=== PATIENT | female | born 1945 | race African-American/Black ===

== ENCOUNTER 2017-03-15 07:23 | Day surgery (SDC) | payer MEDICARE, BC ==
[~2017-03-15] VITALS: Ht 165.1 cm; Wt 104.3 kg
[~2017-03-15 07:23] MED LIST: FLUT1DIS3 IH; HYDR-4133 PO; METF500T4 PO; OLME1TAB30 PO
[2017-03-15 08:37] LABS: BASOPHILS % 1.1 % (0.0-2.0); EOSINOPHILS % 2.5 % (0.0-5.0); HEMATOCRIT. 41.7 % (36.0-48.0); LYMPHOCYTES % 42.6 % (20.0-50.0); MEAN CORPUSCULAR HEMOGLOBIN 30.6 pg (28.0-32.0); MEAN CORPUSCULAR VOLUME 91.5 fL (81.0-99.0); MEAN PLATELET VOLUME 9.9 fl (7.4-10.4); MONOCYTES % 8.2 % (2.0-8.0); NEUTROPHILS % 45.6 % (40.0-76.0); PLATELET 157 x1000/uL (130-400); RED BLOOD CELL COUNT 4.56 mill/uL (4.2-5.4)
[2017-03-15 08:40] LABS: CARBON DIOXIDE 32 mEq/L (21-32); CHLORIDE 105 mEq/L (98-107)
[2017-03-15] MEDS ORDERED: SODIUM CHLORIDE 0.9% 1,000 ML IV SCH ×2 (08:40→09:30)
[2017-03-15] MEDS ORDERED: MIDAZOLAM HCL 2 MG/2 ML VIAL ONE (12:12)
[2017-03-15] MEDS ORDERED: FENTANYL CITRATE/PF 50MCG/ML 2ML VIAL ONE (12:12)
[2017-03-15] MEDS ORDERED: ONDANSETRON HCL 4MG/2ML VIAL ONE (12:23)
[2017-03-15] MEDS ORDERED: LIDOCAINE HCL 1% 20ML VIAL (Pyxis) INJ ONE (12:23)
[2017-03-15] MEDS ORDERED: SODIUM CHLORIDE 0.9% 10ML VIAL ONE (12:23)
[2017-03-15] MEDS ORDERED: CEFAZOLIN SODIUM 1000MG/VIAL ONE (12:23)
[2017-03-15] MEDS ORDERED: DEXAMETHASONE 4MG/ML 1ML VIAL ONE (12:23)
[2017-03-15] MEDS ORDERED: PROPOFOL 200MG/20ML VIAL IV ONE (12:23)
[2017-03-15] MEDS ORDERED: HYDROMORPHONE HCL/PF 2MG/ML CPJ IV PRN (12:30)
[2017-03-15] MEDS ORDERED: LABETALOL HCL 20MG/4ML CARPUJECT IV PRN (12:30)
[2017-03-15] MEDS ORDERED: MEPERIDINE HCL/PF 25MG/ML CPJ IV PRN (12:30)
[2017-03-15] MEDS ORDERED: ONDANSETRON HCL 4MG/2ML VIAL IV PRN (12:30)
[2017-03-15] MEDS ORDERED: DOXY100T2 PO (13:53)
== END 2017-03-15 14:45 | disposition home or self-care (01) ==
LOC: OR 07:23
PROVIDERS: ATTEND Obstetrics & Gynecology Obstetrics
DX: N85.2 Hypertrophy of uterus (principal); E11.9 Type 2 diabetes mellitus without complications; I10 Essential (primary) hypertension; Z83.3 Family history of diabetes mellitus; J45.998 Other asthma; E66.01 Morbid (severe) obesity due to excess calories
CPT/HCPCS: 36415; 58558; 80048; 82962; 85025; 88305; 93005; A4216; J0690; J1100; J2250; J2405; J3010; J3490; J7030; J2704

== ENCOUNTER → 2020-05-08 | Outpatient (CLI) | payer MEDICARE, MEDICAID, BC ==
[~2020-05-08] MED LIST changes: +DOXY100T2 PO; +METF-414 PO; -METF500T4 PO
== END | disposition home or self-care (01) ==
LOC: RAD 12:05
PROVIDERS: ATTEND Internal Medicine
DX: J98.11 Atelectasis (principal); J45.909 Unspecified asthma, uncomplicated
CPT/HCPCS: 71046